=== PATIENT | female | born 2000 | race African-American/Black ===

== ENCOUNTER 2024-11-21 14:52 | Emergency (ER) | payer OTHER, MEDICAID, SELFPAY ==
--- NOTE | ~2024-11-21 | XR_ITS ---
EXAMINATION: XR KNEE 4 OR MORE VIEWS RIGHT HISTORY: pain, injury COMPARISON: There are no prior studies available for comparison. FINDINGS: Four views of the right knee are submitted. Osseous mineralization is normal. There is no fracture or dislocation. The joint spaces are preserved. There is a small joint effusion. XR/XR knee RT 4V IMPRESSION: Small joint effusion. Otherwise unremarkable examination of the right knee. Electronically signed by: Mike Harding MD 11/21/2024 03:43 PM EDT
[2024-11-21 15:12] VITALS: BP 109/68; PULSE 98; RESP 18; TEMP 37.2; O2SAT 98; BMI 33.0
--- NOTE | 2024-11-21 15:12 | ED.GENADULT ---
HPI - General Adult General Chief complaint: Extremity Injury, Lower Stated complaint: r knee inj work Time Seen by Provider: 11/21/24 17:47 Source: patient, RN notes reviewed and old records reviewed Mode of arrival: ambulatory Limitations: no limitations History of Present Illness ED Provider: Agustin HPI narrative: 24-year-old female presents for evaluation of right knee pain. Patient reports that she was falling to dismount from a pull-up bar. When she landed she felt a twist in her right knee. She has pain with walking but has been able to ambulate since. She did not fall, there was no head strike Related Data Allergies Allergy/AdvReac Type Severity Reaction Status Date / Time No Known Allergies Allergy Verified 11/21/24 15:13 Review of Systems Constitutional: Constitutional: Denies body ache(s), Denies chills, Denies fever(s) and Denies headache(s) Eyes: Eyes: Denies floaters ENT: Denies vertigo, Denies dizziness and Denies headache(s) Cardiovascular: Cardiovascular: Denies chest pain Gastrointestinal: Gastrointestinal: Denies abdominal pain Musculoskeletal: Musculoskeletal: Reports arthralgias, Reports joint swelling and Reports limited range of motion Neurologic: Denies vertigo, Denies dizziness and Denies headache(s) PMFSH Social History Social History Advance Directives: No Advance Directives Information Provided: No Physical Exam ED Vital Signs: Vital Signs - 24 hr 11/21/24 15:12 11/21/24 17:52 Temperature 98.9 F 98.9 F Pulse Rate 98 98 Respiratory Rate 18 18 Blood Pressure 109/68 109/68 Pulse Oximetry 98 98 Oxygen Delivery Method Room Air Room Air BMI result Body Mass Index 33.0 Const General: healthy appearing, comfortable, no acute distress, alert and awake Nutritional Appearance: well nourished Orientation/consciousness: patient oriented x3 HENMT Head: Yes normocephalic and Yes atraumatic Eyes Eyelids: Yes eyelids normal Conjunctivae: conjunctivae normal Sclerae: sclerae normal Corneas: corneas normal Pupils: Equal, round and reactive pupils present EOM: EOMs intact bilaterally Neck Neck: Yes full ROM Resp Effort & Inspection: normal respiratory effort, able to speak in complete sentences and not labored Skin General skin exam: elasticity normal Neuro General: patient oriented x3 Cranial nerves: Yes Equal, round and reactive pupils present and Yes Bilaterally intact EOM present Cognition (Neuro): normal cognition Extrem Other: There is mild right knee edema with the parents small effusion. There is tenderness to the lateral aspect of the right knee without deformity. She is able to flex and extend the right knee with full range of motion. No calf tenderness Course Course Course Narrative: RME, this is a rapid medical exam performed by Jefe Velez please refer to primary provider for complete H&P- 24 year old female presents for evaluation of right knee pain after landing awkwardly on it. Plan for x-rays. She is able to extend the knee Medical Decision Making Medical Decision Making MDM Narrative: This is a healthy 24-year-old female presenting for evaluation of right knee pain after an injury. She appears to have mild edema. She is able to bear weight, she has full range of motion. There was no laxity with anterior drawer testing. Plan for x-ray of the right knee to evaluate for tibial plateau fracture versus patellar fracture but I feel this is less likely given reassuring exam. Differential Diagnosis Differential Diagnoses: The differential diagnosis associated with the presentation includes Knee sprain Contusion Fracture Dislocation Independent Interpretation I performed an independent interpretation of an: Plain X-Ray Interpretation: agree with radiology interpretation Radiology Impression Discussion of test interpretation with radiology: I have reviewed the radiologist's reading. Radiologist Impression: FINDINGS: Four views of the right knee are submitted. Osseous mineralization is normal. There is no fracture or dislocation. The joint spaces are preserved. There is a small joint effusion. XR/XR knee RT 4V IMPRESSION: Small joint effusion. Otherwise unremarkable examination of the right knee. Electronically signed by: Mike Harding MD 11/21/2024 03:43 PM EDT Discharge Plan Discharge Clinical Impression: Right knee sprain Patient Disposition: Home, Self-Care Instructions: Knee Sprain (ED) Additional Instructions: Your pain is most likely related to a knee sprain. Your x-ray was negative. You may use ice, elevation and rest for the next few days to your pain improves. Use the crutches as needed but you may walk on the affected side as soon as you can tolerate Follow-up with your primary doctor, return for new or worsening symptoms Stand Alone Forms: Work/School Release Interventions: ED Discharge Assessment Last Done: 11/21/24 17:52 Discharge Date/Time: 11/21/24 18:12 Print Language: Taiwanese
[2024-11-21 17:52] VITALS: BP 109/68; PULSE 98; RESP 18; TEMP 37.2; O2SAT 98
--- OUTSIDE RECORDS SUMMARY | 2024-11-21 18:11 | XMS_ITS | Patient Health Record ---
Author Organization [facility] Address [address] [place] [address] Care Team Providers Care Clinical Manager Home Care Name Role Phone DEISY BHATT Unavailable [phone] Allergies No Known Allergies Reason For Referral No Information Medications Medication SIG (Take, Route, Fr equency, Duration) Notes Start Date End Date Status Ofloxacin 0.3 % 10 drops into affect ed ear Otic Once a day for 7 day(s) Active Gabapentin Active Plan Of Treatment No Information Insurance Providers Payer Name Payer Address Payer Phone Subscriber Number Group Number Insured Name Patient Relationship to Insured Coverage Start Date Coverage End Date [employer] [address] [place] [address] [id number] Ana Segura Self - patient is the insured MEDICAID [address] [place] [address] [id number] Ana Segura Self - patient is the insured [employer] [address] [place] [address] [phone] [id number] Ana Segura Self - patient is the insured Medical (General) History Medical History History ICD Code depression anxiety fibromyalgia
--- OUTSIDE RECORDS SUMMARY | 2024-11-21 18:12 | XMS_ITS | Patient Health Record ---
Author Organization [facility] Address [address] [place] [address] Care Team Providers Care Senior Ssis Developer Name Role Phone Beulah Mcbride Primary Care Provider [phone] Ryne Cosby Unavailable [phone] Allergies Allergen (clinical drug ingredient) Drug/Non Drug Allergy documented on EMR Reaction Allergy Type Onset Date Status seasonal (uncoded) Unknown Allergy A ctive Reason For Referral No Information Medications Medication SIG (Take, Route, Frequency, Duration) Notes Start Date End Date Status Xanax 0.25 MG 1 tablet Orally Twice a day PRN does not take regularly Active Paxil 20 MG 1 tablet in the morning Orally Once a day for 90 day(s) total 60mg daily Active Ranitidine HCl 150 MG 1 capsule at bedtime Orally Once a day for 30 day(s) 12/14/2018 Not-Taking hydrOXYzine HCl 25 MG 1 tablet as needed Orally at bedtime for 30 day(s) 01/08/2020 Not-Taking Paxil 40 MG 1 tablet in the morning Orally Once a day for 30 days total 60mg daily Active Ondansetron 8 MG 1 tablet on the tongue and allow to dissolve as needed Orally twice a day for 15 day(s) 10/07/2019 Not-Taking Pregabalin 75 MG 1 capsule Orally twice a day for 15 days 11/07/2019 Not-Taking DULoxetine HCl 60 MG 1 capsule Orally Once a day for 30 days 09/01/2019 Not-Taking Augmentin 500-125 MG 1 tablet Orally every 12 hrs for 10 days 10/08/2024 Active Imitrex 25 MG 1 tablet as needed Orally at onset of headache, may take 1 tablet again every 2 hours, maximum daily dose 4/day for 15 days 04/19/2019 Not-Taking Famotidine 20 MG 1 tablet at bedtime as needed Orally Once a day for 30 day(s) 04/19/2019 Not-Taking Wellbutrin SR 100 MG 1 tablet in the morning Orally Once a day for 90 day(s) Active Senna 8.8 MG/5ML 10 ml at bedtime as needed Orally Once a day for 30 day(s) 03/01/2018 Not-Taking Gabapentin 400 MG 1 capsule Orally twice a day for 90 days Active Amitriptyline HCl 25 MG 1 tablet at bedtime Orally at bedtime for 30 day(s) 04/19/2019 Not-Taking Immunizations Vaccine Route Administration Date Status Comme nts P DTaP younger than 7 years old Unknown 2001 Administered P DTaP younger than 7 years old Unknown 2001 Administered P DTaP younger than 7 years old Unknown 2001 Administered P DTaP younger than 7 years old Unknown 09/21/2002 Administered P DTaP younger than 7 years old Unknown 08/27/2005 Administered P Hep A Unknown 11/08/2005 Administered P Hep A Unknown 10/25/2006 Administered P Hep B Unknown 2001 Administered P Hep B Unknown 2001 Administered P HepB/Hib Unknown 2001 Administered P Hib 2-3 Dose Unknown 09/21/2002 Administered P Hib 4-Dose Unknown 2001 Administered P Hib 4-Dose Unknown 2001 Administered P HPV Nonavalent 9 strains 3 dose IM Intramuscular 06/25/2015 Administered P HPV Nonavalent 9 strains 3 dose IM Intramuscular 12/15/2015 Administered P IPV Unknown 2001 Administered P IPV Unknown 2001 Administered P IPV Unknown 09/21/2002 Administered P IPV Unknown 08/27/2005 Administered P Meningococcal Group B IM Intramuscular 03/01/2018 Admini stered P Meningococcal Group B IM Intramuscular 04/19/2019 Admini stered P Meningococcal Menactra IM Intramuscular 12/19/2014 Admin istered P Meningococcal Menactra IM Intramuscular 03/01/2018 Admin istered P MMR Unknown 05/27/2002 Administered P MMR Unknown 08/27/2005 Administered P Pneumococcal 23 High-Risk Unknown 06/19/2010 Administered P TdaP 7+ Years IM Intramuscular 12/15/2015 Administered P Varicella Unknown 05/27/2002 Administered P Varicella Unknown 10/25/2006 Administered P-HPV Quadrivalent 4 strains 3 dose IM Intramuscular 12/19/2014 Administered Prevnar 7 Unknown 2001 Administered Prevnar 7 Unknown 2001 Administered Prevnar 7 Unknown 2001 Administered Prevnar 7 Unknown 09/21/2002 Administered Social History Tobacco Use: Social History Observation Description Date Details (start date - stop date) Never Smoker NA - NA Sexual activity within last 12 months? Question Answer Notes Had sex in the past 12 months (vaginal, oral, or anal) No Drugs Question Answer Notes Have you used drugs other th an those for medical reasons in the past 12 months? No ZZ--DNU Question Answer Notes Did you have a drink containing alcohol in the p ast year? No Points 0 Interpretation Negative DNU-Smoking Question Answer Notes Are you a: never smoker Section Notes: Lives with mother, grandmoth er, and siblings Lives with mother, stepfathe r, 3 siblings. Have 2 cats. Lives with mother Lives with mother, stepfathe r, 3 siblings. Have 2 cats. Lives with mother Lives with mother, grandmoth er, and siblings Lives with mother, grandmoth er, and siblings Lives with mother, grandmoth er, and siblings Lives with mother, grandmoth er, and siblings Lives with mother Lives with mother, grandmoth er, and siblings Lives with mother, grandmoth er, and siblings Lives with mother, grandmoth er, and siblings Lives with mother, stepfathe r, 3 siblings. Have 2 cats. Lives with mother, grandmoth er, and siblings Lives with mother, grandmoth er, and siblings Problems Problem Type SNOMED Code ICD Code Onset Dates Problem Status W/U Status Risk Notes Problem 221543859 Overweight (E66.3) Active confirmed Problem 09709903 Vitamin D deficiency (E55.9) Active confirmed Problem 50447547 Other chronic pa in (G89.29) Active confirmed Problem 161684501 Radiculopathy, lumbar region (M54.16) Active confirmed Problem 515395144 Fibromyalgia (M79.7) Active confirmed Problem 064932029 Elevated erythrocyte sedimentation rate (R70.0) Active confirmed Problem Moderate recurrent major depression (74089633) Major depressive disorder, recurrent episode, moderate ~ 0.309 0.299 (F33.1) Active confirmed Problem 190654823 Neuropathy (G62.9) Active confirmed Problem 444526425 Obese (E66.9) Active confirmed Problem 92852760 Mood disorder ~ 0.309 0 (F39) Active confirmed Problem 84617134 Dysthymia (F34.1) Active confirmed Problem 0733532218850 Bilateral tinnit us (H93.13) Active confirmed Problem Mixed anxiety and depressive disorder (148752216) Anxiety associated with depression (F41.8) Active confirmed Problem 29775632 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) Active confirmed Problem Moderate recurrent major depression (95996302) Major depressive disorder, recurrent episode, moderate with anxious distress ~ 0.309 0.299 (F33.1) Active confirmed Problem 04611061 Constipation by delayed colonic transit (K59.01) Active confirmed Problem 02124291 Depression in pediatric patient (F32.9) Active confirmed Problem 81667576 Depression, unspecified depression type (F32.9) Active confirmed Problem 789026380 Knee buckling (M25.369) Active confirmed Problem 461168703 Chronic gastroesophageal reflux disease (K21.9) Active confirmed Problem 548307332 History of lumbosacral spine surgery (Z98.890) Active confirmed Problem 44237135 Chronic allergic rhinitis due to other allergic trigger, unspecified seasonality (J30.89) Active confirmed Problem 827810713033149 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 johnny migraine without aura and without status migrainosus (G43.719) Active confirmed Problem Moderate recurrent major depression (95517269) Major depressive disorder, recurrent episode, moderate with atypical features ~ 0.309 0.299 (F33.1) Active confirmed Vital Signs Temperature 98.6 degrees Fahrenheit 10/08/2024 Oximetry 99 10/08/2024 Blood pressure diastolic 66 mm Hg 10/08/2024 Height 59.5 in 10/08/2024 Blood pressure systolic 111 mm Hg 10/08/2024 Weight 162.8 lbs 10/08/2024 BMI 32.33 kg/m2 10/08/2024 Encounters Encounter Location Date Provider Diagnosis Salma Muller A28 [address] [facility] 210 [id number] YEHUDA Marsh [id number] 10/08/2024 Ryne Cosby Acute otitis media , unspecified otitis media type H66.90 Assessments Encounter Date Diagnosis (ICD Code) Assessment Notes Treatment Notes Treatment Clinical Notes Section Notes 10/08/2024 Acute otitis media, unspecified otitis media type (ICD-10 - H66.90) ++++++ Drink plenty of fluids to help keep secretions moist and easy to cough and blow out. Hot tea with lemon juice is a good beverage to try. +++++++ Use normal saline nose drops to help moisten secretions and open the ear (Eustacian tube).. +++++ Sometimes breathing steam in the shower before bedtime will help to loosen nasal secretions and help to quiet the coughing and unclog the ear as well. +++++ Chewing gum or sucking on candies will make you swallow more often and can help the ear open and relieve the pressure/pain as well. +++++++ Plan Of Treatment No Information Insurance Providers Payer Name Payer Address Payer Phone Subscriber Number Group Number Insured Name Patient Relationship to Insured Coverage Start Date Coverage End Date [facility] [address] [place] [phone] [id number] DARIUS LEE Self - patient is the insured 8 Medicaid [place] [address] [address] [phone] [id number] UPSDARIUS MYERS Self - patient is the insured Medical (General) History Medical History History ICD Code 1st visit in clinic 11/13/[address] [facility], no prob lems. No developmental delay Spina Bifida, born with lipoma of spinal cord, excised in 2006 Collapsing feet arches bilat, needs orth otics with high support. GERD constipation depression headaches ASO/CRP/ESR high, WILLIE neg, RF neg, vit d low. Over weight 278.02 High triglycerides 272.1 Surgical History Surgery Date(Month/Year) removal of spine lipoma @ 9 mo T12-L5 laminectomy-[facility] 01/28/2002 Hospitalization History Reason Date(Month/Year) spine lipoma @ 9 mo
--- OUTSIDE RECORDS SUMMARY | 2024-11-21 18:12 | XMS_ITS | Data Portability ---
Author Organization [place] - .[facility] Address [address] [place] [id number] Care Team Providers Care Wharf Worker Name Role Phone SHEYLA MONTIEL Primary Care Provider [phone] Assessment No assessment recorded. Plan of Treatment Reminders Order Date Submit Date Provider Last Modified By Organization Details Last Modified Time Details Appointments None recorde d. Lab tb (M tubercu losis), ifn-rose ma gopi, blood 023 09/02/19 23 [facility], [address] [place], [address], 13:26:38 Referral None recorde d. Procedures None recorde d. Surgeries None recorde d. Imaging None recorde d. Medication Orders None recorde d. Patient TargetsNo targets recorded. Patient Instructions Encounter Date Encounter Id Patient Instructions Last Modified By Organization Details Last Modified Time 09/02/2022 [id number] A healthy lifestyle: care instructions [email or web address] Not available 09/02/2022 22:08:26 Thank you for visiting [facility]. There are two ways to view your lab results: : ? 1. ? ? ? The Memetales wilman is available to all patients 18 and older in the Wilman Store and [employer] First-time wilman users will need to create an account; please note you? l l need to select a login and password for the wilman versus just using your patient portal login credentials. Your lab results will be posted to the Memetales wilman as soon as they? r e available. ? 2. ? ? ? Via email , as soon as lab results are available. If you don? t receive an email within the estimated time frame, give our Aftercare team a call at [phone]. [email or web address] Not available 09/02/2022 15:29:51 [email or web address] Not available 09/02 15:42:59 Reason for Referral None Reported. Results Created Date Observation Date Name Description Value Unit Range Abnormal Flag Note LastModifiedBy Organization Detail LastModifiedTime 09/02/1909/04/2022 QFT QUANT IFERO N TB GOLD quantiferon -TB gold plus NEGATI VE negati ve normal Negat candace test resul t. M. kranthi nino is compl ex infec tion unlik vikas. Not Available [facility] [address] [place] [address], [address], 09/04/2022 13:26:38 09/02/19 23 09/04/2022 QFT QUANT IFERO N TB GOLD nil 0.05 IU/mL Not Available [facility] [address] [place], [address], 09/04/2022 13:26:38 09/02/19 23 09/04/2022 QFT QUANT IFERO N TB GOLD mitogen-nil 9.95 IU/mL Not Available [facility] [address] [place], [address], 09/04/2022 13:26:38 09/02/19 23 09/04/2022 QFT QUANT IFERO N TB GOLD TB1-nil 0.00 IU/mL Not Available [facility] [address] [place], [address], 09/04/2022 13:26:38 09/02/19 23 09/04/2022 QFT QUANT IFERO N TB GOLD TB2-nil 0.01 IU/mL The NIL tube is subtr acted from the patie nt's displ ayed TB and Mitog en Resul ts to deter mine the final resul t. The Nil tube value refle cts the backg round inter feron gamma immun e respo nse of the patie nt's blood sampl e. The Mitog en tube acts as a contr ol for the test. Lower than expec renee resul ts with the Mitog en tube preve nts false -nega tive Quant iFERO N readi ngs by detec ting a patie nt with a poten tial immun e suppr essiv e condi tion and/o r subop timal pre-a nalyt ical speci men handl ing. The TB1 Antig en tube is coate d with the M. tuber culos is-sp ecifi c antig en deign ed to elici t respo nses from TB antig en prime d CD4+ helpe r T-lym phocy dony. The TB2 Antig en tube is coate d with the M. tuber culos is-sp ecifi c antig ens desig regino to elici t respo nses form TB antig en prime d CD4+ helpe r and CD8+ cytot oxic T-lym phocy te. Not Available [facility] [address] [place], [address], 09/04/2022 13:26:38 Result Notes None recorded. Problems Name Problem SNOMED Code Status Onset Date Resolution Date Notes Provider Name and Address Organization Details Recorded Time Arthritis 8229715 Active 023 DANISHA Siegel - .[facility] 09/02/2022 15:50:17 Problem Notes None recorded. Procedures Surgical History Date Name Laterality Status Provider Name and Address Organization Details Recorded Time 3 . [facility] - [place] Physical completed Silvia RAMAN - .[facility] 09/02/2022 15:41:26 3 . [facility] - Physical Exam completed Silvia RAMAN - .[facility] 09/02/2022 15:42:15 Imaging Results None recorded. Procedure Notes None recorded. Medical Equipment None Reported. Allergies No known drug allergies Medications Not known to be on any medication Vitals Date Recorded Body height Body mass index (BMI) Body weight Heart rate Body temperature Respiratory rate Oxygen saturation Oxygen saturation in Arterial blood by Pulse oximetry Systolic blood pressure Diastolic blood pressure Provider Name and Address Organization Details Last Updated DateTime 3 152.4 cm 29 kg/m2 41316.8 3 g 88 /min 98.2 [degF] 16 /min 99 % 99 % 112 mm[Hg] 75 mm[Hg] Silvia RAMAN - .[facility] 3 15:50:08 Social History Question Answer Notes LastModified by [facility] Details LastModified Time RISK LEVEL - Segmentation Level 1 - Healthy [email or web address] Information not available 11/26/2022 Sex: Unknown Functional Status Question Answer Note LastModified by [facility] Details LastModified Time 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 Family History Nothing Reported. Medical History No medical history recorded. Gynecological HistoryNo gynecological history recorded. Obstetrics History GPAL:G 0 P 0 0 0 0 Past Encounters Encounter ID Performer Location Encounter Start Date Encounter Closed Date Diagnosis/Indication Diagnosis SNOMED-CT Code Diagnosis ICD10 Code Diagnosis Note [id number] Theron Hui MD [facility] [address] [address] 09/02/2022 15:15:40 09/02/2022 15:51:10 Administrative reason for encounter 004090107 Z02.9 Health Concerns Section Related Observation LastModified by Organization Detai ls LastModified Time None Recorded Concern Status LastModified by Organization Details LastModified Time None Recorded Advance Directives Directive None Recorded Payers Insurance Date Sequence Insurance Name Policy Number Policy Roman Covered Member ID Roman Member ID Guarantor Name 10/11/2022 [employer] [place] [id number] Ana [place] 09/02/2022 [facility] Ana [place] 0 0 Ana [place] Notes Date Note Type Note Provider Name and Address Organization Details Recorded Time 09/02/2022 text/html .[facility] - Physic al ExamReported bypatient.source of patient informationpatient Patient presents for an employment physicalPre-Employment OccupationWaitress [employer]: PH[employer]ICAL AND QUANTIFERON FOR WORKWAITRESS AT THE [employer] RISK FACTORS OTHER THAN EXPOSURE TO THE AGED AT WORK. Theron Hui MD [address] [place] [address],[address], [place], [address], [facility] - .[facility] 09/02/2022 16:43:00 OBGyn Episode No OBEpisode recorded.
== END 2024-11-21 18:12 | disposition home or self-care (01) ==
LOC: HO.ED 18:09
PROVIDERS: Emergency Provider Emergency Medicine
DX: S83.91XA Sprain of unspecified site of right knee, initial encounter (principal); X58.XXXA Exposure to other specified factors, initial encounter; Y93.9 Activity, unspecified; Y92.9 Unspecified place or not applicable; Y99.9 Unspecified external cause status; M25.561 Pain in right knee
CPT/HCPCS: 73564; 99282; 99283

== ENCOUNTER → 2024-11-21 15:13 | Outpatient (BNV) | payer SELFPAY | PROVIDERS: Visit Provider Radiology Diagnostic Radiology | DX: M25.461 Effusion, right knee (principal) | CPT/HCPCS: 73564 ==